=== PATIENT | male | born 2000 ===

== ENCOUNTER 2018-02-25 11:13 | Emergency (ER) | payer BC ==
[2018-02-25 11:38] VITALS: BP 119/65
--- NOTE | 2018-02-25 12:05 | UC ---
Eye Complaint HPI - HPI Summary HPI Summary: 18 yo male presents with right eye stye for the last 2 months. Initially he did warm compresses and had good relief, but then returned. He was seen here about a month ago and was given erythromycin ointment and bactrim po he continued with warm compresses and his stye went down and was gone. As soon as he stopped compresses and anbx ointment his stye returned. He is here for recheck. Denies pain, vision changes, headache, injury, or contact usage. - History of Current Complaint Chief Complaint: UCEye Stated Complaint: EYE COMPLAINT Time Seen by Provider: 02/25/18 12:05 Hx Obtained From: Patient Onset/Duration: Gradual Onset Severity Currently: None Pain Intensity: 0 - Allergies/Home Medications Allergies/Adverse Reactions: Allergies Allergy/AdvReac Type Severity Reaction Status Date / Time No Known Allergies Allergy Verified 02/25/18 11:36 PMH/Surg Hx/FS Hx/Imm Hx - Additional Past Medical History Additional PMH: None Previously Healthy: Yes - Surgical History Surgical History: None - Family History Known Family History: Positive: Diabetes - Social History Occupation: Student Lives: With Family Alcohol Use: Occasionally Substance Use Type: None Smoking Status (MU): Current Some Day Smoker - Immunization History Vaccination Up to Date: Yes Review of Systems Constitutional: Negative Skin: Negative Eyes: Other - Eyelid nodule ENT: Negative Respiratory: Negative Cardiovascular: Negative Gastrointestinal: Negative Neurological: Negative Psychological: Negative All Other Systems Reviewed And Are Negative: Yes Physical Exam - Summary Physical Exam Summary: GENERAL: NAD. WDWN. No pain distress. SKIN: No rashes, sores, lesions, or open wounds. HEENT: Head: AT/NC Eyes: EOM intact. Conjunctiva clear without inflammation or discharge. RIGHT upper eyelid with central 2mm nodule and mild surround erythema and edema. Mildly TTP. No drainage able to be expressed. Ears: Hearing grossly normal. TMs intact, no bulging, erythema, or edema. Nose: Nasal mucosa pink and moist. NTTP maxillary and frontal sinus. Throat: Posterior oropharynx without exudates, erythema, or tonsillar enlargement. Uvula midline. NECK: Supple. Nontender. No lymphadenopathy. CHEST: No accessory muscle use. Breathing comfortably and in no distress. CV: Pulses intact. Brisk cap refill. NEURO: Alert. PSYCH: Age appropriate behavior. Triage Information Reviewed: Yes Vital Signs: Initial Vital Signs Temp 98.7 F 02/25/18 11:32 Pulse 88 02/25/18 11:32 Resp 18 02/25/18 11:32 BP 119/65 02/25/18 11:32 Pulse Ox 98 02/25/18 11:32 Vital Signs Reviewed: Yes Eye Complaint Course/Dx - Course Course Of Treatment: Stye refractory to conservative treatment and rx treatment. Will refer him to ophthalmology for evaluation and possible I&D - Differential Dx/Diagnosis Provider Diagnoses: Right eyelid stye Discharge - Sign-Out/Discharge Documenting (check all that apply): Patient Departure - Discharge Plan Condition: Stable Disposition: HOME Patient Education Materials: Stye (ED) Referrals: No Primary Care Phys,NOPCP [Primary Care Provider] - César Rockwell MD [Medical Doctor] - As Soon As Possible Additional Instructions: If you develop a fever, shortness of breath, chest pain, new or worsening symptoms - please call your PCP or go to the ED. 1) Please continue warm compresses 2) Schedule a follow up appointment with Dr. Rockwell at the number below - Billing Disposition and Condition Condition: STABLE Disposition: Home
== END 2018-02-25 12:24 | disposition home or self-care (01) ==
LOC: UCEAST 11:13
DX: H00.021 Hordeolum internum right upper eyelid (principal); F17.200 Nicotine dependence, unspecified, uncomplicated
CPT/HCPCS: 99211; G0463